=== PATIENT | male | born 1950 | race Caucasian/White ===

== ENCOUNTER 2017-02-04 19:03 | Observation (INO) | payer MEDICARE, BC ==
[2017-02-04] MEDS ORDERED: SODIUM CHLORIDE 0.9% 500 ML 500 ML IV ONE (19:22)
[2017-02-04] MEDS ORDERED: SODIUM CHLORIDE 0.9% FLUSH 10 ML SOL IV PRN (19:22)
[2017-02-04 19:24] LABS: BASOPHILS % (AUTO) 2 % (0-3); EOSINOPHILS % (AUTO) 4 % (0-9); HEMATOCRIT 38 % (39-53); MEAN CORPUSCULAR HGB CONC 36.1 gm/dl (32.0-36.0); MEAN CORPUSCULAR VOLUME 88 fL (80-100); MONOCYTES % (AUTO) 8.8 % (0-12); NEUTROPHILS % (AUTO) 64.4 % (37-80)
[2017-02-04 19:37] LABS: CALCIUM 8.8 mg/dl (8.5-10.1); GLOM FILT RATE 40 mL/min (>60); POTASSIUM 3.8 mMol/L (3.5-5.1); SODIUM 140 mMol/L (136-145)
[2017-02-05] MEDS ORDERED: LISINOPRIL 5 MG TAB PO SCH (10:30)
[2017-02-05] MEDS ORDERED: INFLUENZA HIGH DOSE VACCINE 0.5 ML SUS IM ONE (10:36)
[2017-02-05 10:52] VITALS: BP 148/95; PULSE 76; RESP 16; TEMP 97.7; O2SAT 97
== END 2017-02-05 12:05 | disposition home or self-care (01) | DRG 316 ==
LOC: ED 19:03 → ACUTE CARE 20:53
PROVIDERS: ADMIT Surgery Surgical Critical Care; ATTEND Surgery Surgical Critical Care
DX: I95.9 Hypotension, unspecified (principal); F43.21 Adjustment disorder with depressed mood
CPT/HCPCS: 71010; 80048; 84484; 85025; 85378; 90662; 93005; 93012; 94762; 96365; 99217; 99219; 99285; G0008

== ENCOUNTER 2017-06-12 11:47 | Outpatient (CLI) | payer MEDICARE, BC ==
[2017-02-05 10:52] VITALS: O2SAT 97
== END 2017-06-12 11:48 | disposition home or self-care (01) | DRG 558 ==
LOC: CONVCARE 11:47
PROVIDERS: ATTEND Orthopaedic Surgery
DX: M75.41 Impingement syndrome of right shoulder (principal)
CPT/HCPCS: 73030

== ENCOUNTER 2018-08-19 19:40 | Emergency (ER) | payer MEDICARE, BC ==
[2018-08-19 19:40] VITALS: O2SAT 97
[2018-08-19 20:02] VITALS: PULSE 76; RESP 20; TEMP 98.1
[2018-08-19 20:56] VITALS: BP 160/110
== END 2018-08-19 21:00 | disposition home or self-care (01) | DRG 552 ==
LOC: ED 19:40
DX: S13.9XXA Sprain of joints and ligaments of unspecified parts of neck, initial encounter (principal)
CPT/HCPCS: 99282

== ENCOUNTER 2018-11-20 09:04 | Day surgery (SDC) | payer MEDICARE, BC ==
[2018-11-20] MEDS ORDERED: MIDAZOLAM 2 MG/2 ML SOL ONE (09:52)
[2018-11-20] MEDS ORDERED: FENTANYL 100MCG/2ML SOL ONE (09:52)
[2018-11-20] MEDS ORDERED: BUPIVACAINE HCL 0.5% MPF 10 ML SOL ONE (09:52)
[2018-11-20] MEDS ORDERED: SODIUM CHLORIDE 0.9% FLUSH 10 ML SOL IV ONE (09:59)
[2018-11-20 10:28] VITALS: BP 134/96; PULSE 82; RESP 18; TEMP 97.2; O2SAT 97
== END 2018-11-20 10:44 | disposition home or self-care (01) | DRG 554 ==
LOC: SURG 09:04
PROVIDERS: ATTEND Nurse Anesthetist, Certified Registered
DX: M12.88 Other specific arthropathies, not elsewhere classified, other specified site (principal)
CPT/HCPCS: J2250; J3010

== ENCOUNTER 2018-12-04 07:26 | Day surgery (SDC) | payer MEDICARE, BC ==
[2018-12-04 08:10] VITALS: TEMP 97.3
[2018-12-04] MEDS ORDERED: SODIUM CHLORIDE 0.9% FLUSH 10 ML SOL IV ONE (08:22)
[2018-12-04 08:46] VITALS: RESP 12
[2018-12-04 09:15] VITALS: BP 115/89; PULSE 68; O2SAT 97
== END 2018-12-04 09:20 | disposition home or self-care (01) | DRG 554 ==
LOC: SURG 07:26
PROVIDERS: ATTEND Nurse Anesthetist, Certified Registered
DX: M12.88 Other specific arthropathies, not elsewhere classified, other specified site (principal)

== ENCOUNTER 2018-12-11 12:29 | Day surgery (SDC) | payer MEDICARE, BC ==
[2018-12-11] MEDS ORDERED: TRIAMCINOLONE ACETONIDE 40 MG/ML SUS ONE (12:59)
[2018-12-11] MEDS ORDERED: LIDOCAINE HCL 2% MPF 10 ML SOL ONE (12:59)
[2018-12-11] MEDS ORDERED: BUPIVACAINE HCL 0.25% MPF 30 ML SOL INFIL ONE (12:59)
[2018-12-11] MEDS ORDERED: SODIUM CHLORIDE 0.9% FLUSH 10 ML SOL IV ONE (13:03)
[2018-12-11] MEDS: MIDAZOLAM 2 MG/2 ML SOL ONE ×2 (13:29→14:18)
[2018-12-11] MEDS: FENTANYL 100MCG/2ML SOL ONE ×2 (13:29→14:02)
[2018-12-11 13:35] VITALS: RESP 16
[2018-12-11 14:38] VITALS: BP 120/92; PULSE 74; TEMP 96.8; O2SAT 95
== END 2018-12-11 15:31 | disposition home or self-care (01) | DRG 554 ==
LOC: SURG 12:29
PROVIDERS: ATTEND Nurse Anesthetist, Certified Registered
DX: M12.88 Other specific arthropathies, not elsewhere classified, other specified site (principal)
CPT/HCPCS: J2250; J3010; J3300